=== PATIENT | male | born 1935 | race Hispanic/Latino ===

== ENCOUNTER → 2019-01-23 | Outpatient (CLI) | payer OTHER | END | disposition home or self-care (01) | LOC: OIH 13:56 | PROVIDERS: ATTEND Internal Medicine | DX: M47.816 Spondylosis without myelopathy or radiculopathy, lumbar region (principal); M13.842 Other specified arthritis, left hand; M13.841 Other specified arthritis, right hand; M51.36 Other intervertebral disc degeneration, lumbar region; M06.4 Inflammatory polyarthropathy | CPT/HCPCS: 72100; 72202; 73130 ==